=== PATIENT | female | born 1945 | race Caucasian/White ===

== ENCOUNTER 2018-03-07 06:26 | Day surgery (SDC) | payer MEDICARE, BC ==
[~2018-03-07] VITALS: Ht 165.1 cm; Wt 78.5 kg
--- NOTE | ~2018-03-07 | OP ---
PATIENT NAME: REN CAT MEDICAL RECORD: [id number] :47 LOCATION:[facility] ADMISSION DATE: SURGEON: ALINA DOCKERY MD DATE OF OPERATION: 03/07/2018 PREOPERATIVE DIAGNOSIS: Left neck mass. POSTOPERATIVE DIAGNOSIS: Left neck mass. PROCEDURE: Excision of left neck mass. SURGEON: Alina Dockery MD ANESTHESIA: General orotracheal. BLOOD LOSS: 1 cc. SPECIMENS: Cystic left neck mass. FINDINGS: Frozen section diagnosis consistent with benign lymphoid tissue, no evidence of malignancy. COMPLICATIONS: None. DISPOSITION: Recovery stable. DRAINS: None. DESCRIPTION OF PROCEDURE: She was brought to the operating room and placed in a supine position, sedated and intubated by anesthesia. Head was turned to the right. Left neck was prepped and draped in usual sterile fashion for left neck dissection. The mass was anterior border of the sternocleidomastoid between level 2 and 3. An incision was marked for left neck dissection. A portion of that inferiorly near the middle of the marking or just anterior to the sternocleidomastoid was used for the incision. That was injected with less than 1 cc of 1% lidocaine with 1:100,000 epinephrine. A horizontal incision was made. This was taken down through the platysma. The anterior border of the sternocleidomastoid was identified. A flap was developed superiorly and the cyst was easily identified and dissected out completely and intact. It was really not attached to any surrounding tissues. There was a little nodular area at the superior portion of it, but I did not seem like lymph node could be a very small lymph node or just some fatty tissue, but that was dissected out as well. There were no other masses or adenopathy palpable. The specimen was sent for path. I saw a benign-appearing lymphoid tissue, but no evidence of malignancy. The wound was irrigated copiously. There was no significant bleeding. The platysma layer was closed with interrupted 4-0 Vicryl. Skin was closed with subcuticular running 6-0 Prolene. Steri-Strips and Mastisol were applied. She was awakened, extubated, and transported to recovery in good condition. No complications. TRANSINT:[id number] Voice Confirmation ID: [id number] DOCUMENT ID: [id number] OPERATIVE REPORT [id number] STEPHANIAREN ALINA DOCKERY MD at 1044 CC: [id number] DICTATION DATE: 03/07/18 1314 FINANCE BROKER: 03/07/18 1841 [facility] 03/07/18 [id number] [place] [id number]
--- NOTE | ~2018-03-07 | HP ---
PATIENT: REN CAT MEDICAL RECORD: [id number] ACCOUNT: [id number] LOCATION:D.OPS : 47 ADMISSION DATE: 03/07/18 HISTORY AND PHYSICAL EXAMINATION HISTORY OF PRESENT ILLNESS: Ms. Cat is a 72-year-old female with a left neck mass, it was found to be cystic. Cytology was negative for malignancy. CT showed the cyst and adjacent lymph node, but no other lesions. Rest of ENT exam is negative. She has been admitted for excision of that cystic mass and the lymph node with the possibility of a neck dissection. PAST MEDICAL HISTORY: Includes coronary artery disease. PAST SURGICAL HISTORY: Includes hysterectomy, surgery for broken arm, and cardiac bypass. ALLERGIES: METHOTREXATE. CURRENT MEDICATIONS: Include Dulera, Orencia, and pravastatin. PHYSICAL EXAMINATION: GENERAL: She is healthy-appearing. FACE: Normal, symmetric. No lesions. EYES: Sclerae and conjunctivae are normal. EARS: Canals and TMs are normal. NOSE: No mass, polyps or drainage. ORAL CAVITY AND OROPHARYNX: Tongue protrudes in the midline. Pharynx is normal. No masses. NECK: Has a 2-3 cm mass on the anterior border of the sternocleidomastoid. No other palpable masses or adenopathy. No thyromegaly. Flexible laryngoscopy negative for any lesions. Cranial nerves are normal. CHEST: Clear. CARDIOVASCULAR: Regular rate and rhythm, no murmur. EXTREMITIES: Normal. IMPRESSION: Left cystic neck mass. PLAN: Excision of the neck mass and lymph node with possible neck dissection. TRANSINT:[id number] Voice Confirmation ID: [id number] DOCUMENT ID: [id number] ALINA LUCAS MD at 1044 CC: [id number] DICTATION DATE: 03/06/18 1441 [employer]BACCO BUYER: 03/06/18 1532 [facility] 03/07/18 [id number] [place] [address]
[~2018-03-07 06:26] MED LIST: ASTEPRO30 M1 NASAL; CELEXA20 MG PO; DULERA 100 MCG8.8 GM INH; FOLIC ACID1 MG PO; ORENCIA250 MG/10 IV; PRAVACHOL20 MG PO; PREDNISONE50 MG PO; VITAMIN D2000 UNIT PO
[2018-03-07 07:22] VITALS: BP 136/43; Ht 165.1 cm; Wt 78.5 kg
== END 2018-03-07 13:34 | disposition home or self-care (01) ==
LOC: D.OPS 06:26 → D.PAN 09:45 → D.OPS 13:34
DX: D11.9 Benign neoplasm of major salivary gland, unspecified (principal); I25.10 Atherosclerotic heart disease of native coronary artery without angina pectoris; Z95.1 Presence of aortocoronary bypass graft; Z88.8 Allergy status to other drugs, medicaments and biological substances; Z79.899 Other long term (current) drug therapy; Z01.812 Encounter for preprocedural laboratory examination